=== PATIENT | male | born 1990 | race Caucasian/White ===

== ENCOUNTER 2025-07-23 13:26 | Emergency (ER) | payer MEDICAID ==
[~2025-07-23] VITALS: Ht 170.2 cm; Wt 83.9 kg
[2025-07-23 13:34] VITALS: O2SAT 98
[2025-07-23 13:49] VITALS: BP 135/74; PULSE 89; RESP 16; TEMP 36.9; O2SAT 99
[2025-07-23] MEDS: KETOROLAC 30MG/ML VIAL IM ONE (15:36)
[2025-07-23 17:34] LABS: CLARITY URINE CLEAR (CLEAR); COLOR URINE YELLOW (YELLOW); GLUCOSE URINE NEGATIVE (NEGATIVE); KETONES URINE TRACE (NEGATIVE); LEUKOCYTE ESTERASE URINE NEGATIVE (NEGATIVE); NITRITE URINE NEGATIVE (NEGATIVE); OCCULT BLOOD URINE NEGATIVE (NEGATIVE); PH URINE 5.5 (4.5-8.0); PROTEIN URINE NEGATIVE (NEGATIVE); SPECIFIC GRAVITY URINE 1.032 (1.005-1.030); UROBILINOGEN URINE 1.0 E.U./dL (0.2-1.0)
[2025-07-23] MEDS ORDERED: IBUP-1455 MT (17:41)
[2025-07-23] MEDS ORDERED: CYCL5TAB3 MT (17:41)
== END 2025-07-23 17:50 | disposition home or self-care (01) ==
LOC: ER 13:26
DX: M54.50 Low back pain, unspecified (principal)
CPT/HCPCS: 99283; 81003; 96372; J1885